=== PATIENT | male | born 1970 | race African-American/Black ===

== ENCOUNTER 2018-12-02 14:27 | Emergency (ER) | payer OTHER ==
[~2018-12-02] VITALS: Ht 185.4 cm; Wt 104.5 kg
[2018-12-02] MEDS ORDERED: KETOROLAC TROMETHAMINE 30 MG/ML VIAL IM ONE (15:45)
[2018-12-02 16:45] VITALS: BP 134/92
== END 2018-12-02 16:52 | disposition home or self-care (01) ==
LOC: EMS 14:31
DX: M25.512 Pain in left shoulder (principal); F17.210 Nicotine dependence, cigarettes, uncomplicated; F12.90 Cannabis use, unspecified, uncomplicated
CPT/HCPCS: 73030; 96372; 99283; 99406; J1885